=== PATIENT | female | born 1965 | race Caucasian/White ===

== ENCOUNTER 2020-05-06 15:29 | Outpatient (CLI) | payer BC, SELFPAY ==
--- NOTE | 2020-05-06 15:41 | US_ITS ---
WS: [id number] ULTRASOUND RENAL TECHNIQUE: Ultrasound examination of both kidneys. CLINICAL INFORMATION: RENAL FAILURE COMPARISON: None. FINDINGS: RIGHT: Right kidney is normal in size and appearance. Echogenicity: Normal. Cortical thickness: 1.3 cm; Normal. Hydronephrosis: None. Perinephric fluid: None. Right kidney measures: 9.3 cm x 5.3 cm x 5.3 cm. LEFT: Left kidney is normal in size and appearance. Echogenicity: Normal. Cortical thickness: 1.4 cm; Normal. Hydronephrosis: None. Perinephric fluid: None. Left kidney measures: 9.6 cm x 6.5 cm x 6.1 cm. Normal visualized aorta. Bladder contracted US/US renal BI* [id number] IMPRESSION: Normal renal ultrasound
== END 2020-05-06 15:30 | disposition home or self-care (01) ==
LOC: US 15:30
PROVIDERS: PCP Nurse Practitioner Family; Visit Provider Nurse Practitioner Family
DX: N17.9 Acute kidney failure, unspecified (principal)
CPT/HCPCS: 76770

== ENCOUNTER 2020-10-13 13:39 | Outpatient (CLI) | payer BC, SELFPAY ==
--- NOTE | 2020-10-13 13:44 | MR_ITS ---
WS: [id number] MRI BRAIN WITH HIGH-RESOLUTION IMAGING THROUGH THE INTERNAL AUDITORY CANALS WITHOUT AND WITH CONTRAST HISTORY: DIZZINESS AND GIDDINESS COMPARISON: None available. TECHNIQUE: Multiplanar, multisequence imaging is performed through the brain. Additional 3 mm imaging performed in multiple planes through the internal auditory canal. Postcontrast imaging with 12 ml's of MultiHance. No acute intracranial hemorrhage, midline shift, edema or mass effect. Mild atrophy and very mild chronic microvascular ischemic changes in a periventricular distribution. No prior infarcts. No mass at the cerebellopontine angle. Ventricles and extra-axial spaces are normal. No inferior displacement of cerebellar tonsils. Clivus and pituitary gland are normal. Internal and external auditory canals: Unremarkable. Cranial nerves VII and VIII complexes: Unremarkable. No enhancement or mass. Cerebellopontine angles: Normal. Paranasal sinuses: Normal. Mastoid air cells: Normal. Calvarium and scalp: Normal. Visualized [place] and dural venous sinuses demonstrate no abnormality. MR/MR iac's wo/w con* [id number] IMPRESSION: 1. Normal MRI IACs. 2. No mass or infarct. 3. Very mild chronic microvascular ischemic disease.
[2020-10-13] MEDS: gadobenate dimeglumine 20 mL vial IV (14:59)
== END 2020-10-13 13:40 | disposition home or self-care (01) ==
PROVIDERS: PCP Nurse Practitioner Family; Visit Provider Specialist
DX: R42 Dizziness and giddiness (principal); I67.82 Cerebral ischemia
CPT/HCPCS: 70553; A9577

== ENCOUNTER 2021-07-20 10:35 | Outpatient (CLI) | payer BC, SELFPAY ==
--- NOTE | 2021-07-20 10:41 | MM_ITS ---
WS: [id number] BILATERAL SCREENING DIGITAL MAMMOGRAM WITH CAD HISTORY: SCREENING COMPARISON: 10/06/2018 and 09/15/2017 Bilateral CC and MLO views submitted. Computer aided detection analyzed. Breast composition: The breasts are heterogeneously dense, which may obscure small masses. No suspici ous masses, microcalcifications or architectural distortion. Benign calcifications in each breast. MM/[place] [id number] IMPRESSION: BI-RADS: 2-Benign FOLLOW UP: 1 Year Follow-up
== END 2021-07-20 10:36 | disposition home or self-care (01) ==
LOC: RADSHAW 10:39
PROVIDERS: PCP Family Medicine; Visit Provider Family Medicine
DX: Z12.31 Encounter for screening mammogram for malignant neoplasm of breast (principal)
CPT/HCPCS: 77067

== ENCOUNTER 2022-10-12 14:46 | Outpatient (CLI) | payer BC, SELFPAY ==
--- NOTE | 2022-10-12 14:58 | MM_ITS ---
WS: [id number] BILATERAL 3D TOMOSYNTHESIS DIGITAL SCREENING MAMMOGRAPHY WITH CAD CLINICAL INFORMATION: SCREENING HISTORY: Screening mammogram. No current complaints. COMPARISON: July 20, 2021 TECHNIQUE: Bilateral CC and MLO views. FINDINGS: The breasts are composed of heterogeneous fibroglandular density tissue, which can limit the detectio n of small underlying mass lesions. No suspicious mass, asymmetry, calcifications, or architectural d istortion. No evidence of malignancy. Punctate and lucent centered calcifications. Dystrophic calcifi cations. MM/[place] [id number] IMPRESSION: BI-RADS: 2-Benign FOLLOW UP: 1 Year Follow-up Recommend return to annual screening mammography.
== END 2022-10-12 14:47 | disposition home or self-care (01) ==
LOC: RAD 14:49
PROVIDERS: PCP Family Medicine; Visit Provider Family Medicine
DX: Z12.31 Encounter for screening mammogram for malignant neoplasm of breast (principal)
CPT/HCPCS: 77063; 77067

== ENCOUNTER 2023-03-04 08:22 | Outpatient (CLI) | payer BC, SELFPAY ==
--- NOTE | 2023-03-04 08:50 | XR_ITS ---
WS: [id number] Thoracic spine, 3 views, 03/04/2023 Clinical Data: Thoracic back pain Comparison: None. Findings: No compression fractures are seen. The disc heights are normal. There is minimal osteoarthritis of the mid and lower thoracic vertebral bodies. There is elevation of the left diaphragm with the the colon in a posterior position, probably a foramen of Bochdalek herni a. Impression: 1. Mild osteoarthritis of the thoracic spine. 2. Probable foramen of [place]chdalek hernia.
--- NOTE | 2023-03-04 08:50 | XR_ITS ---
WS: [id number] Lumbar spine, 3 views, 03/04/2023 Clinical Data: Lumbar radiculopathy Comparison: None. Findings: No compression fractures or subluxation is seen. No disc space narrowing is seen. The transverse proc esses and SI joints are normal. There is a slight levoscoliosis. There is a probable herniation of the left posterior diaphragm, fora men of [place]dalek hernia containing colon. Impression: 1. Minimal levoscoliosis. 2. Probable elevation of the posterior left diaphragm from a foramen of Bochdalek hernia.
== END 2023-03-04 08:23 | disposition home or self-care (01) ==
PROVIDERS: PCP Family Medicine; Visit Provider Family Medicine
DX: M54.14 Radiculopathy, thoracic region (principal); M54.16 Radiculopathy, lumbar region; M47.814 Spondylosis without myelopathy or radiculopathy, thoracic region; M41.86 Other forms of scoliosis, lumbar region
CPT/HCPCS: 72072; 72100

== ENCOUNTER 2023-04-08 08:06 | Outpatient (CLI) | payer BC, SELFPAY ==
--- NOTE | 2023-04-08 08:00 | CT_ITS ---
WS: [id number] CT CHEST AND ABDOMEN WITH CONTRAST HISTORY: Foramen of [place]chdalek hernia/elevated left hemidiaphragm TECHNIQUE: Axial imaging is performed through the chest and abdomen with IV and oral contrast.. Sagit erna and coronal reformats. All CT scans at [facility] [place] use at least one of these dose optimiza tion techniques: automated exposure control; mA and/or kV adjustment per patient size (includes targe jahaira exams where dose is matched to clinical indication); or iterative reconstruction. CONTRAST: Omnipaque 350; 100 mL IV. DLP: 335.08 mGy.cm COMPARISON: None available. Chest CT: No pulmonary mass or nodule. There is atelectasis at the LEFT lung base. Compressive atelectasis due to the large hernia. Heart is normal size. There is mild displacement of the heart due to the intrathoracic stomach. No ad enopathy. Mild atherosclerosis aorta. LEFT vertebral artery [place] is directly from the aorta. Entire stomach is intrathoracic. Stomach enters the thoracic through mid to anterior diaphragmatic de fect. Portion of the stomach and colon are present in the thorax. Abdomen CT: Mild hepatic steatosis. Normal size liver and spleen. Negative gallbladder and adrenal glands. Negati ve pancreas. No renal mass or obstruction. Mild atherosclerosis aorta. No ascites or adenopathy. No small bowel obstruction. Stomach is intrathoracic. There is a large hernia containing intrathoraci c stomach and portions of the colon. Hernia centered more towards the mid to anterior diaphragmatic s urface. IMPRESSION: 1. Large mid to anterior LEFT diaphragmatic defect with herniation of stomach and colon into the lowe r thorax. No obstruction. No ischemic changes. 2. Mild hepatic steatosis. 3. No adenopathy or ascites.
[2023-04-08] MEDS: iohexol 350 mg/mL 500 mL Btl (per mL) IV (08:49)
== END 2023-04-08 08:07 | disposition home or self-care (01) ==
PROVIDERS: PCP Family Medicine; Visit Provider Family Medicine
DX: Q79.0 Congenital diaphragmatic hernia (principal); R07.89 Other chest pain; K76.0 Fatty (change of) liver, not elsewhere classified
CPT/HCPCS: 71260; 74160; Q9967

== ENCOUNTER 2023-08-15 07:48 | Outpatient (CLI) | payer BC, SELFPAY ==
[2023-08-18 21:14] LABS: Cotinine Serum/Plasma <2 ng/mL; Nicotine Serum/Plasma <2 ng/mL
== END 2023-08-15 07:49 | disposition home or self-care (01) ==
LOC: LAB 07:50
PROVIDERS: PCP Family Medicine; Visit Provider Family Medicine
DX: Z01.818 Encounter for other preprocedural examination (principal)
CPT/HCPCS: 36415; 80323

== ENCOUNTER → 2024-03-30 10:27 | Outpatient (BNVA) | payer BC, SELFPAY | PROVIDERS: PCP Family Medicine; Visit Provider Family Medicine | DX: R63.4 Abnormal weight loss (principal); E53.8 Deficiency of other specified B group vitamins; E03.9 Hypothyroidism, unspecified; Z51.81 Encounter for therapeutic drug level monitoring; E55.9 Vitamin D deficiency, unspecified | CPT/HCPCS: 80053; 82306; 82607; 83550; 83735; 84439; 84443; 85025 ==

== ENCOUNTER 2024-04-02 15:33 | Emergency (ER) | payer BC, SELFPAY ==
[2024-04-02] VITALS (12 sets, daily range): BP systolic 93–139; BP diastolic 52–78; PULSE 62–73; RESP 10–23; TEMP 36.7; O2SAT 97–100; BMI 15.0
--- NOTE | 2024-04-02 16:03 | ECG_ITS ---
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 Measurements Intervals [place] Rate: 65 P: 56 IA: 145 QRS: 60 QRSD: 92 T: 68 QT: 405 QTc: 422 Interpretive Statements SINUS RHYTHM LOW QRS VOLTAGE IN PRECORDIAL LEADS [QRS DEFLECTION < 1.0 mV IN CHEST LEADS] NONSPECIFIC ST & T-WAVE ABNORMALITY No previous ECG available for comparison Electronically Signed On 04-03-2024 7:57:48 CDT by Shankar Reese M.D. [email or web address]
[2024-04-02 16:44] LABS: Basophils % 1.2 %; Hematocrit 34.1 % (36-47); Lymphocytes # 0.8 10^3/uL (0.8-4.8); Lymphocytes % 22.5 %; Mean Corpuscular HGB Conc 31.1 g/dL (30-55); Mean Corpuscular Hemoglobin 31.9 pg (27-33); Mean Corpuscular Volume 102.7 fl (85-98); Mean Platelet Volume 9.8 fL (7.4-10.4); Monocytes # 0.3 10^3/uL (0.2-0.9); Monocytes % 8.7 %; Neutrophils # 2.25 10^3/uL (1.8-7.7); Neutrophils % 67.3 %; Nucleated Red Blood Cells % 0 %; Platelet Count 325 10^3/cmm (157-399); Red Blood Count 3.32 10^6/uL (3.85-5.65); Red Cell Distribution Width 14.6 % (12.1-15.1); White Blood Count 3.34 10^3/uL (3.29-11.43)
[2024-04-02 17:00] LABS: Alanine Aminotransferase 10 U/L (0-33); Albumin Level 3.4 g/dL (3.5-5.2); Alkaline Phosphatase 69 U/L (35-105); Anion Gap 17.6 (5-19); Aspartate Amino Transferase 19 U/L (0-32); Blood Urea Nitrogen 7 mg/dL (6-20); Calcium 8.6 mg/dL (8.5-10.5); Carbon Dioxide 23 mmol/L (22-29); Chloride 98 mmol/L (98-107); Creatinine Clr Calc Pharmacy 67.4713; Globulin 2.7 g/dL (1.3-4.6); Glomerular Filtration Rate 103.4 mL/min (90-130); Glucose 159 mg/dL (65-115); Magnesium 1.4 mg/dL (1.7-2.3); Osmolality Calculated 283 mOsm/kg (285-295); Sodium 136 mmol/L (136-145); Total Bilirubin 0.5 mg/dL (0.15-1.2); Total Protein 6.1 g/dL (6.6-8.7)
[2024-04-02 17:10] LABS: Potassium 2.6 mmol/L (3.5-5.1)
--- NOTE | 2024-04-02 17:38 | W.ED.RECABL ---
HPI - Recheck/Abnormal Lab/Rx General: Chief Complaint: Recheck/Abnormal Lab/Rx Stated Complaint: rajeshan called--critically low potassium Time Seen by Provider: 04/02/24 17:30 History of Present Illness: 58-year-old female with a history of hiatal hernia repair surgery and issues with swallowing over the last several months who presents emergency room with low potassium. She has had a large deal of weight loss. She has been being followed by surgeons at [facility]. She had a recent ex lap. She has had multiple EGDs for the swallowing problems. Her primary checked her labs today and her potassium was low. It is 2.6 today. There is 2.6 on 913 months checked previously. She has had some generalized weakness. No chest pain. No palpitations. No altered mental status. No focal motor deficits. No focal abdominal pain at this time. We discussed that we are going to replace her potassium today and she will continue her workup and follow-up with her primary and her surgeon. Related Data Home Medications Medication Instructions Recorded Confirmed azelastine 137 mcg (0.1 %) nasal 2 spray intranasal BID 03/09/22 11/19/23 spray cholecalciferol (vitamin D3) 50 50 mcg PO DAILY 03/09/22 11/19/23 mcg (2,000 unit) capsule levocetirizine 5 mg tablet 5 mg PO DAILY 03/09/22 11/19/23 meclizine 25 mg tablet 25 mg PO DAILY PRN 07/29/23 03/30/24 phenylephrine HCl 10 mg tablet 10 mg PO Q6H PRN 07/29/23 03/30/24 (Sudafed PE) fremanezumab-vfrm 225 mg/1.5 mL mg SUBCUT 03/30/24 03/30/24 subcutaneous auto-injector (Ajovy) hydrocodone 5 mg-acetaminophen 325 1 tab PO Q8H PRN 03/30/24 03/30/24 mg tablet Previous Rx's Medication Instructions Recorded scopolamine base 1 mg over 3 days 1 patch transdermal Q3D PRN nausea 06/03/22 transdermal patch and vomiting #10 ea cyanocobalamin (vitamin B-12) 1,000 mcg PO DAILY #90 caps 06/17/22 1,000 mcg capsule mupirocin 2 % topical ointment 1 applic topical BID #15 grams 02/21/23 dicyclomine 10 mg capsule 10 mg PO TID PRN Stomach cramps 07/29/23 #30 caps doxylamine succinate 25 mg tablet See Rx Instructions .Route 07/29/23 .COMPLEX PRN insomnia #30 tabs omeprazole 40 mg capsule,delayed 40 mg PO DAILY #30 caps 07/29/23 release citalopram 10 mg tablet 10 mg PO DAILY #30 tabs 03/30/24 metoprolol tartrate 25 mg tablet 25 mg PO DAILY #30 tabs 03/30/24 levothyroxine 75 mcg tablet See Rx Instructions .Route 04/02/24 .COMPLEX #30 tabs potassium chloride 20 mEq 40 meq (2 x 20 mEq) PO DAILY 7 04/02/24 tablet,extended release(part/cryst) days #7 tabs Allergies Allergy/AdvReac Type Severity Reaction Status Date / Time latex Allergy ALGY-Rash Verified 04/02/24 16:09 Review of Systems Narrative: Constitutional symptoms: Negative except as documented in HPI. Skin symptoms: Negative except as documented in HPI. Eye symptoms: Negative except as documented in HPI. ENMT symptoms: Negative except as documented in HPI. Respiratory symptoms: Negative except as documented in HPI. Cardiovascular symptoms: Negative except as documented in HPI. Gastrointestinal symptoms: Negative except as documented in HPI. Genitourinary symptoms: Negative except as documented in HPI. Musculoskeletal symptoms: Negative except as documented in HPI. Neurologic symptoms: Negative except as documented in HPI. Psychiatric symptoms: Negative except as documented in HPI. Endocrine symptoms: Negative except as documented in HPI. [facility] ED PFSH: Medical History (Updated 04/02/24 @ 17:43 by Naz Pantoja MD) Congenital hernia of foramen of Bochdalek Hypothyroidism Hypertension Surgical History (Updated 04/02/24 @ 16:53 by Robert Olivas MD) Dilation of esophagus 02/2024 - Dr Borja - Adhesiolysis with release of posterior fundoplication Hx of cataract surgery Diaphragmatic hernia Repair of diaphragmatic hernia (congenital) - 08/2023 - Jonh History of fracture of nose As a child History of dilation and curettage 1990 after miscarriage Hx of section 1992 Family History Father Cancer Colon cancer - diagnosed at age 64 Grandfather Cancer of melanoma Social History Smoking and tobacco/nicotine status: never used tobacco/nicotine Alcohol intake: never Physical Exam Narrative: EXAM NARRATIVE: General: Alert, no acute distress. Patient does appear very thin slightly cachectic. Skin: Warm, dry. Head: Normocephalic, atraumatic. Neck: Supple, trachea midline. Eye: Extraocular movements are intact. Ears, nose, mouth and throat: mucosa moist. Cardiovascular: Regular, Normal peripheral perfusion. Respiratory: Lungs are clear to auscultation, respirations are non-labored, breath sounds are equal, Symmetrical chest wall expansion. Gastrointestinal: Soft, Nontender, Non distended Musculoskeletal: Normal ROM, no deformity. Neurological: Alert and oriented, No focal neurological deficit observed. Psychiatric: Cooperative, appropriate mood & affect. Course Vital Signs: Vital signs: Vital Signs Temperature 98.1 F 04/02/24 15:58 Pulse Rate 73 04/02/24 15:58 Blood Pressure 112/66 04/02/24 15:58 Pulse Oximetry 100 04/02/24 15:58 Oxygen Delivery Me thod Room Air 04/02/24 15:58 MDM - Recheck/Abnormal Lab/Rx Medical Decision Making Medical decision making: Differential diagnosis including but not limited to and based on the above HPI, review of systems and physical exam: Low potassium seen previously. Repeat labs and a magnesium today. Orders placed to evaluate differential diagnosis based on the above differential, HPI and physical exam EKG: Time 1218. Rate 84. PVCs. Normal sinus rhythm, No ST-T changes, normal MS & QRS intervals, This was reviewed and interpreted by myself the ER physician Lab Review: Laboratory results were reviewed and interpreted by myself the emergency room physician. White count 3.3. Hemoglobin 10.6. BUN and creatinine are 7 and 0.6. No renal failure. She does have a potassium of 2.6 and a magnesium of 1.4 which are significantly low and we are replacing. I reviewed the patient's medical record. Assessment and plan: Hypokalemia Hypomagnesemia ? 40 mill equivalents IV potassium and 40 mill equivalents p.o. potassium. 2 g IV magnesium. - Discharged home - Discussed plan with patient. Answered any questions. - Evaluation and treatment of this problem were appropriate in the emergency setting. Lab Data 04/02/24 16:32 04/02/24 16:32 Laboratory Results WBC 3.34 10^3/uL (3.29-11.43) 04/02/24 16: RBC 3.32 10^6/uL (3.85-5.65) L 04/02/24 16:32 Hgb 10.60 g/dL (11.27-16.99) L 04/02/24 16: Hct 34.1 % (36-47) L 04/02/24 16: MCV 102.7 fl (85-98) H 04/02/24 16: MCH 31.9 pg (27-33) 04/02/24 16: MCHC 31.1 g/dL (30-55) 04/02/24 16: RDW 14.6 % (12.1-15.1) 04/02/24 16: Plt Count 325 10^3/cmm (157-399) 04/02/24: MPV 9.8 fL (7.4-10.4) 04/02/24 16: Neut % (Auto) 67.3 % 04/02/24 16: Lymph % (Auto) 22.5 % 04/02/24 16: [place] % (Auto) 8.7 % 04/02/24: Eos % (Auto) 0.0 % 04/02/24: Baso % (Auto) 1.2 % 04/02/24: Neut # (Auto) 2.25 10^3/uL (1.8-7.7) 04/02/24: Lymph # (Auto) 0.8 10^3/uL (0.8-4.8) 04/02/24 16: [place] # (Auto) 0.3 10^3/uL (0.2-0.9) 04/02/24: Eos # (Auto) 0.0 10^3/uL (0.0-0.8) 04/02/24: Baso # (Auto) 0.0 10^3/uL (0.0-0.1) 04/02/24: Nucleated RBC % (auto) 0 % 04/02/24: Nucleated RBCs # 0.0 /100WBC 04/02/24 16:32 Sodium 136 mmol/L (136-145) 04/02/24 16:32 Potassium 2.6 mmol/L (3.5-5.1) L* 04/02/24 16:32 Chloride 98 mmol/L (98-107) 04/02/24 16:32 Carbon Dioxide 23 mmol/L (22-29) 04/02/24 16:32 Anion Gap 17.6 (5-19) 04/02/24 16:32 BUN 7 mg/dL (6-20) 04/02/24 16:32 Creatinine 0.6 mg/dL (0.5-0.9) 04/02/24 16:32 GFR Calculation 103.4 mL/min (90-130) 04/02/24 16:32 Glucose 159 mg/dL (65-115) H 04/02/24 16:32 Calculated Osmolality 283 mOsm/kg (285-295) L 04/02/24 16:32 Calcium 8.6 mg/dL (8.5-10.5) 04/02/24 16:32 Magnesium 1.4 mg/dL (1.7-2.3) L 04/02/24 16:32 Total Bilirubin 0.5 mg/dL (0.15-1.2) 04/02/24 16:32 AST 19 U/L (0-32) 04/02/24 16:32 ALT 10 U/L (0-33) 04/02/24 16:32 Alkaline Phosphatase 69 U/L (35-105) 04/02/24 16:32 Total Protein 6.1 g/dL (6.6-8.7) L 04/02/24 16:32 Albumin 3.4 g/dL (3.5-5.2) L 04/02/24 16:32 Globulin 2.7 g/dL (1.3-4.6) 04/02/24 16:32 No radiology studies performed this visit Discharge Plan Discharge Patient Disposition: Home Clinical Impression: Hypokalemia, Hypomagnesemia Condition: Stable Prescriptions: New potassium chloride 20 mEq tablet,ER particles/crystals 40 meq PO DAILY 7 Days Qty: 7 0RF No Action azelastine 137 mcg (0.1 %) aerosol,spray 2 spray intranasal BID Rx Instructions: administer into each nostril cholecalciferol (vitamin D3) 50 mcg (2,000 unit) capsule 50 mcg PO DAILY levocetirizine 5 mg tablet 5 mg PO DAILY mupirocin 2 % ointment 1 applic topical BID Qty: 15 2RF meclizine 25 mg tablet 25 mg PO DAILY PRN phenylephrine HCl [Sudafed PE] 10 mg tablet 10 mg PO Q6H PRN doxylamine succinate 25 mg tablet See Rx Instructions .Route .COMPLEX PRN (Reason: insomnia) Qty: 30 6RF Rx Instructions: Take 1 tab by mouth each evening PRN dicyclomine 10 mg capsule 10 mg PO TID PRN (Reason: Stomach cramps) Qty: 30 3RF omeprazole 40 mg capsule,delayed release(DR/EC) 40 mg PO DAILY Qty: 30 3RF hydrocodone-acetaminophen 5-325 mg tablet 1 tab PO Q8H PRN Ajovy Autoinjector 225 mg/1.5 mL auto-injector SUBCUT metoprolol tartrate 25 mg tablet 25 mg PO DAILY Qty: 30 6RF citalopram 10 mg tablet 10 mg PO DAILY Qty: 30 6RF levothyroxine 75 mcg tablet See Rx Instructions .ROUTE .COMPLEX Qty: 30 2RF Dose Instruction: TAKE 1 TABLET BY MOUTH EVERY DAY Rx Instructions: TAKE 1 TABLET BY MOUTH EVERY DAY scopolamine base 1 mg over 3 days patch 3 day 1 patch transdermal Q3D PRN (Reason: nausea and vomiting) Qty: 10 6RF cyanocobalamin (vitamin B-12) 1,000 mcg capsule 1,000 mcg PO DAILY Qty: 90 3RF Discharge Orders: Discharge ED (Routine); Ordered 04/02/24 Ordered By: Naz Pantoja Referrals: Robert Olivas MD [Primary Care Provider] - Discharge Diet: Usual diet Discharge Activity: Increase activity as tolerated Patient Instructions: Hypokalemia (ED) Activity Restrictions/Additional Instructions: Thank you for choosing [facility] for your healthcare needs today. Please realize this is an emergency room and that we are providing you with a medical screening exam and this may not be complete and all inclusive of all the testing and or work up that you may need to determine your ailment or severity of your illness. You have been screened and evaluated and felt safe for discharge. Health conditions do change or evolve sometimes and as such it is important that you follow up with your Primary Doctor to be re checked, 3-5 days is a general good time frame for follow up. You are always welcome to return to the ED for re assessment if your symptoms are worsening or you have new concerns Coding Level of Care Code ED Human Resources Manager for Claudia Borden
[2024-04-02] MEDS: potassium chloride premix 100 ML 25 MEQ IV (18:21)
[2024-04-02] MEDS: magnesium sulfate premix 2 GM/50 ML PIGGYBACK IV (18:41)
[2024-04-03] VITALS: BP 128/64; PULSE 64; RESP 13; O2SAT 100
[2024-04-03 00:05] VITALS: BP 124/64; PULSE 66; RESP 17
[2024-04-03 00:09] VITALS: BP 128/64; PULSE 62; O2SAT 100
== END 2024-04-03 00:13 | disposition home or self-care (01) ==
PROVIDERS: Emergency Provider Emergency Medicine; PCP Family Medicine
DX: E87.6 Hypokalemia (principal); E83.42 Hypomagnesemia; I10 Essential (primary) hypertension
CPT/HCPCS: 36415; 80053; 83735; 85025; 93005; 96365; 96366; 96367; 99284; J3475; J3480

== ENCOUNTER → 2024-05-11 12:18 | Outpatient (BNVA) | payer BC, SELFPAY | PROVIDERS: PCP Family Medicine; Visit Provider Family Medicine | DX: Z51.81 Encounter for therapeutic drug level monitoring (principal); E83.42 Hypomagnesemia; E53.8 Deficiency of other specified B group vitamins; E55.9 Vitamin D deficiency, unspecified; R60.0 Localized edema | CPT/HCPCS: 85025 ==

== ENCOUNTER → 2024-05-14 08:36 | Outpatient (BNVA) | payer BC, SELFPAY | PROVIDERS: PCP Family Medicine; Visit Provider Family Medicine | DX: Z51.81 Encounter for therapeutic drug level monitoring (principal); R60.0 Localized edema; E53.8 Deficiency of other specified B group vitamins; E83.42 Hypomagnesemia; E55.9 Vitamin D deficiency, unspecified | CPT/HCPCS: 80053; 82306; 82607; 83735; 83880; 85025 ==

== ENCOUNTER → 2024-06-05 07:48 | Outpatient (BNVA) | payer BC, SELFPAY | PROVIDERS: PCP Family Medicine; Visit Provider Family Medicine | DX: R63.4 Abnormal weight loss (principal) | CPT/HCPCS: 83540 ==

== ENCOUNTER 2025-03-10 12:30 | Emergency (ER) | payer BC, SELFPAY ==
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
--- OUTSIDE RECORDS SUMMARY | 2025-03-10 12:35 | XMS_ITS | Encounter Summary ---
Author Organization [facility] Address [address] [place] [address] Care Team Providers Care Veterinary Practice Manager Name Role Phone Unavailable Primary Care Provider Ryan e Encounter Details Date Type Department Care Team (Latest Contact Info) Description 03/27/2003 Outpatient Historical [facility] Jani Howard Jr., MD [address] [place] [address] ADJUSTMENT REACTION NOS (Primary Dx); HYPERLIPIDEMIA NEC/NOS Social History Tobacco Use Types Packs/Day Years Used Date Smoking Tobacco: Never Assessed Comments Unknown Sex and Gender Information Value Date Recorded Sex Assigned at Not on file 

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
--- OUTSIDE RECORDS SUMMARY | 2025-03-10 12:35 | XMS_ITS | Encounter Summary ---
Author Organization [facility] Address [address] [place] [address] Phone Care Team Providers Care Grades 7 And 8 Visiting Teacher Name Role Phone Unavailable Primary Care Provider Unavailabl e Encounter Details Date Type Department Care Team (Late st Contact Info) Description 06/06/2020 Orders Only [facility] [address] [place] [address] Gerardo Portillo MD [address] [place] [address] Acute kidney failure, not otherwise specified (HCC) Social History Tobacco Use Types Packs/Day Years Used Date Smoking Tobacco: Never Assessed Comments Unknown Sex and Gender Information Value Date Recorded Sex Assigned at Not on file Legal Sex Female 11:21 AM EDT Gender Identity Not on file Sexual Orientation Not on file documented as of this encounter Plan of Treatment Not on file documented as of this encounter Visit Diagnoses Diagnosis Acute kidney failure, not otherwise specified (HCC) documented in this encounter
--- OUTSIDE RECORDS SUMMARY | 2025-03-10 12:35 | XMS_ITS | Encounter Summary ---
Author Organization 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
--- OUTSIDE RECORDS SUMMARY | 2025-03-10 12:35 | XMS_ITS | Clinical Summary ---
Author Organization [facility] Address [address] [address] Care Team Providers Care Marketing Production Manager Name Role Phone Unavailable Primary Care Provider Unavailabl e Social History Tobacco Use Types Packs/Day Years Used Date Smoking Tobacco: Never Assessed Comments Unknown Sex and Gender Information Value Date Recorded Sex Assigned at Not on file Legal Sex Female 11:21 AM EDT Gender Identity Not on file Sexual Orientation Not on file Plan of Treatment Health Maintenance Due Date Last Done Comments Breast Cancer Screening 1965 Hepatitis B Vaccine (1 of 3 - 19+ 3-dose series) 11/28 Colorectal Cancer Screening: Annual FOBT 11/28/2016 Colorectal Cancer Screening: Colonoscopy 11/28/2016 Colorectal Cancer Screening: Sigmoidoscopy 11/28/2016 Pneumococcal Vaccine: 50+ Years (1 of 1 - PCV) 018 Influenza Vaccine (#1) 2025 Insurance [facility]
--- OUTSIDE RECORDS SUMMARY | 2025-03-10 12:35 | XMS_ITS | Encounter Summary ---
Author Organization [facility] Address [address] [place] [address] Care Team Providers Care Divorce Lawyer Name Role Phone Unavailable Primary Care Provider Ryan e Encounter Details Date Type Department Care Team (Latest Contact Info) Description 01/04/2003 Outpatient Historical HIS [facility] Jani Howard Jr., MD [address] [place] [address] ADJUSTMENT REACTION NOS (Primary Dx); BEREAVEMENT, UNCOMPLICAT Social History Tobacco Use Types Packs/Day Years Used Date Smoking Tobacco: Never Assessed Comments Unknown Sex and Gender Information Value Date Recorded Sex Assigned at Not on file 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
--- OUTSIDE RECORDS SUMMARY | 2025-03-10 12:35 | XMS_ITS | Patient Health Record ---
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 Name Role Phone Robert Olivas MD Primary Care Provider Unavaila chantelle Willis MD, Luis Unavailable [phone] Kathy Tabor Unavailable [phone] Allergies Allergen (clinical drug ingredient) Drug/Non Drug Allergy documented on EMR Reaction Allergy Type Onset Date Status Latex latex (uncoded) Unknown Allergy Acti ve Reason For Referral Reason Evaluation for possi ble treatment / continuation of care (clinic closing due to provider's senior care) Diagnosis 1 Pain in thoracic spi ne (M54.6) Referral Organization [facility] Referring Provider First Name Luis Referring Provider Last Name Lazaro Referring Provider Speciality Pain Manag ement Referred Provider Dionisio Villagran Referred Provider Specialty Pain Managem ent General Notes Stefany Alejo 03:39:18 PM >FAXED TODAY. Referral Priority Routine Referral Appointment Date 12/28/2024 Medications Medication SIG (Take, Route, Frequency, Duration) Notes Start Date End Date Status Metoprolol Tartrate 25 mg 1 tab(s) orally 2 times a day Active meclizine 25 mg 1 tab(s) orally 3 times a day, as needed Active acetaminophen-hydrocodo ne 325 mg-5 mg 1-2 tabs orally Q4-6H prn pain (max 6/day; hold within 4H of planned sleep); Duration: 28 days Do not fill prior to 01/03/25. ICD-10: G89.29 2024 Active spironolactone 25 mg 1 tab(s) orally onc e a day Active acetaminophen-hydrocodo ne 325 mg-5 mg 1-2 tabs orally Q4-6H prn pain (max 6/day; hold within 4H of planned sleep); Duration: 28 days Do not fill prior to 12/06/24. ICD-10: G89.29 2024 Active omeprazole 40 mg as directed orally once a day Active ferrous sulfate 325 mg 1 tab(s) orally o nce a day Active citalopram 10 mg 1 tab(s) orally once a day; Duration: 30 day(s) Active magnesium oxide 400 mg 1 tab(s) orally o nce a day Active levothyroxine 88 mcg (0.088 mg) 1 tab(s) orally once a day Active Vitamin D2 50 mcg 1 cap(s) orally once a day Active acetaminophen-hydrocodo ne 325 mg-5 mg 1-2 tabs orally Q4-6H prn pain (max 6/day; hold within 4H of planned sleep); Duration: 28 days Do not fill prior to 01/31/25. ICD-10: G89.29 2024 Active acetaminophen 325 mg 1-2 tabs orally prn pain Active Sudafed 30 mg 1 tab(s) orally ever y 6 hours Active Ajovy Autoinjector vfrm 225 mg/1.5 mL as directed subcutaneously once a month Active Xyzal 5 mg 1 tab(s) orally once a day (in the evening) Active Social History Tobacco Use: Social History Observation Description Date Details (start date - stop date) Former Smoker NA - NA Tobacco use: Question Answer Notes : former smoker When did you stop smoking? 08/06 23 AUDIT-C (Standard) Question Answer Notes Did you have a drink containing alcohol in the p ast year? No Points 0 Interpretation Negative Problems Problem Type SNOMED Code ICD Code Onset Dates Problem Status W/U Status Risk Notes Problem High risk drug monitoring status (269152312) halfway (current) use of opiate analgesic (Z79.891) Active confirmed Problem Sleep disorder (52909189) Other sleep disorders (G47.8) Active confirmed Problem Chronic pain (88728102) Other chronic pain (G89.29) Active confirmed Problem Essential hypertension (69284614) Essential (primary) hypertension (I10) Active confirmed Problem Thoracic radiculopathy (04906828) Radiculopathy, thoracic region (M54.14) Active confirmed Problem Pain in thoracic spine (885845473) Pain in thoracic spine (M54.6) Active confirmed Problem Long-term current use of drug therapy (555093735) Other mcc (current) drug therapy (Z79.899) Active confirmed Problem Muscle pain (48948873) Myalgia, other site (M79.18) Active confirmed Vital Signs Temperature 97.6 degrees Fahrenheit 2024 Oximetry 98 % 2024 Blood pressure diastolic 83 mm Hg 2024 Height 65 in 2024 Blood pressure systolic 125 mm Hg 2024 Weight 131.4 lbs 2024 BMI 21.86 kg/m2 2024 Encounters Encounter Location Date Provider Diagnosis [facility] [address] [place], [place] [id number] 04/12/2024 Kathy Abbott Pain in thoracic spine M54.6 ; Other chronic pain G89.29 ; Other sleep disorders G47.8 and buttermaker (current) use of opiate analgesic Z79.891 [facility] [address] [place], [place] [id number] 06/21/2024 Luis Willis Pain in thoracic spine M54.6 ; Other chronic pain G89.29 and Other sleep disorders G47.8 [facility] [address] [place], [place] [id number] 08/09/2024 Luis Reynaldoosiel Pain in thoracic spine M54.6 ; Other chronic pain G89.29 and Other sleep disorders G47.8 [facility] [address] [place], [place] [id number] 10/04/2024 Luis Reynaldoosiel Pain in thoracic spine M54.6 ; Other chronic pain G89.29 ; Essential (primary) hypertension I10 and Other sleep disorders G47.8 [facility] [address] [place], [place] [id number] 2024 Luis Willis Pain in thoracic spine M54.6 ; Other chronic pain G89.29 and Other sleep disorders G47.8 [facility] [address] [place], [place] [id number] 04/02/2024 Luis Willis Assessments Encounter Date Diagnosis (ICD Code) Assessment Notes Treatment Notes Treatment Clinical Notes Section Notes 2024 Other chronic pain (ICD-10 - G89.29) Patient reports that taking her pain medication allows her to continue working. Plan to continue oral opioid medication at today's visit. 2024 Pain in thoracic spine (ICD-10 - M54.6) Chronic axial thoracic spine pain. Patient requests a referral to Dr. Villagran for continuation of care. 06/21/2024 Other chronic pain (ICD-10 - G89.29) Patient reports that she is doing more physical activities because she is taking care of her mother and most days could use more pain medication. Plan to continue oral opioid medication management with quantity titration. 06/21/2024 Pain in thoracic spine (ICD-10 - M54.6) Chronic axial thoracic spine pain. 04/12/2024 Pain in thoracic spine (ICD-10 - M54.6) Chronic axial thoracic spine pain. 10/04/2024 Other chronic pain (ICD-10 - G89.29) Patient reports that taking her pain medication allows her to continue her stretching and yoga therapy. Plan to continue oral opioid medication management. 10/04/2024 Pain in thoracic spine (ICD-10 - M54.6) Chronic axial thoracic spine pain. 08/09/2024 Pain in thoracic spine (ICD-10 - M54.6) Chronic axial thoracic spine pain. 08/09/2024 Other chronic pain (ICD-10 - G89.29) Patient reports that she is doing more physical activity while taking care of her mother and sitting at her computer for longer stretches for work. She feels that most days would benefit with an extra pain tablet. Plan to continue oral opioid medication management with quantity titration. 10/04/2024 Essential (primary) hypertension (ICD-10 - I10) Education sheet given at today's visit; patient to address with PCP. 04/12/2024 Other sleep disorders (ICD-10 - G47.8) Plan to resrict opioid use in relation to sleep for safety concerns. 04/12/2024 Other chronic pain (ICD-10 - G89.29) Patient reports that taking her pain medication allows her to bounce back following multiple surgeries this year. She plans to return to work on 04/16/24. Plan to continue oral opioid medication management. 06/21/2024 Other sleep disorders (ICD-10 - G47.8) Plan to resrict opioid use in relation to sleep for safety concerns. 2024 Other sleep disorders (ICD-10 - G47.8) Plan to continue to resrict opioid use in relation to sleep for safety concerns. 04/12/2024 buttermaker (current) use of opiate analgesic (ICD-10 - Z79.891) Patient has a total daily MED of 15. This places the [facility] in the [facility] low risk category for total daily opioid usage. 2022 opioid (OUD) risk tool score = 2. This places the patient in the low risk category. 10/04/2024 Other sleep disorders (ICD-10 - G47.8) Plan to resrict opioid use in relation to sleep for safety concerns. 08/09/2024 Other sleep disorders (ICD-10 - G47.8) Plan to resrict opioid use in relation to sleep for safety concerns. 06/21/2024 Other Patient counselled regarding taking more medication than prescribed and verbalized understanding that her care at this facility will be terminated should future violations of her treatment agreement occur. The service was provided by GUIDO Garza, as part of the ongoing care plan established by Luis Willis MD, who was present in the office for direct supervision during the encounter. 08/09/2024 Other The service was provided by GUIDO Garza, as part of the ongoing care plan established by Luis Willis MD, who was present in the office for direct supervision during the encounter. 10/04/2024 Other The service was provided by GUIDO Garza, as part of the ongoing care plan established by Luis Willis MD, who was present in the office for direct supervision during the encounter. 2024 Other The service was provided by GUIDO Garza, as part of the ongoing care plan established by Luis Willis MD, who was present in the office for direct supervision during the encounter. Patient was provided with a letter at today's visit informing patient that this clinic is closing due to Dr. Willis's senior care; see scanned document. Terminal prescriptions were given to the patient along with tapering instructions. 04/12/2024 Other Plan Of Treatment No Information Insurance Providers Payer Name Payer Address Payer Phone Subscriber Number Group Number Insured Name Patient Relationship to Insured Coverage Start Date Coverage End Date [facility] [address] [place] [address] [id number] Jennifer Leon Self - patient is the insured Medical (General) History Medical History History ICD Code Chronic pain Mid back pain Thoracic spondylosis (arthri tis of thoracic spine as per prior radiology report) History of radiculopathy, thoracic regio n Low back pain, history of remote injecti on therapy with no benefit Headaches, history of triptan medication use Congenital hernia of foramen of [place] k Omeprazole medication use Hypothyroidism Hypertension Depression Dizziness / vertigo Nausea and vomiting, history of treatmen t with scopolamine Sleep disorder noted upon pr ior sleep apnea screening (patient has reported that snoring resolved post prior weight loss) Surgical History Surgery Date(Month/Year) Repair of fractured nose, 1977 Dilation and curettage, 1991 section, 1992 Repair of hiatal hernia, per formed at [place], [place] by Dr. Borja, 08/23/23 Espohageal dilation, perform ed at [place], [place] by Dr. Borja, 12/26/23 Cataract surgery, right, performed at [facility] by Dr. Holly, 01/04/24 Cataract surgery, left, performed at [facility] by Dr. Holly, 01/18/24 Laparotomy, abdominal, performed at [place], [place], 01/2024 EGD, performed at [place], [place] , 03/14/24
--- OUTSIDE RECORDS SUMMARY | 2025-03-10 12:35 | XMS_ITS | Clinical Summary ---
Author Organization [facility] Address [address] [place] [address] Care Team Providers Care Clay Carman Name Role Phone Unavailable Primary Care Provider Unavailabl e Allergies No known active allergies Medications hydrALAZINE (APRESOLINE) 10 mg tablet Take 10 mg by mouth 2 times daily. Active metoprolol succinate (TOPROL XL) 100 mg Extended Release 24 hour tablet Take 75 mg by mouth 2 times daily. Active traZODone (DESYREL) 150 mg tablet Take 75 mg by mouth daily at bedtime. Active omeprazole (PriLOSEC) 20 mg Capsule, Delayed Release(E.C.) Take 20 mg by mouth daily. Active cholecalciferol, Vitamin D3, 125 mcg (5,000 unit) Capsule Take 5,000 Units by mouth daily. Active Ca-D3-mag fl-ypsr-rha-elliott-afua r 600 mg calcium- 20 mcg-50 mg Tablet Take by mouth. Active pseudoephedrine HCl (SUDAFED ORAL) Take by mouth. Active meclizine (ANTIVERT) 12.5 mg tablet Take 12.5 mg by mouth every 8 hours as needed. Active azelastine (ASTEPRO) 0.15 % (205.5 mcg) nasal spray Administer in each nostril. Active levocetirizine (XYZAL) 5 mg tablet Take 5 mg by mouth 2 times daily. Active SCOPOLAMINE BASE TRANSDERMAL Apply to skin as directed. Active levothyroxine 88 mcg tablet Take 75 mcg by mouth daily. 02/03/20 22 Active levocetirizine dihydrochloride (LEVOCETIRIZINE ORAL) Take by mouth. 11/27/19 21 Active phenylephrine HCl/acetaminophn (SINUS PE ORAL) Take by mouth. 11/27/19 Active meclizine (ANTIVERT) 12.5 mg tablet Take 12.5 mg by mouth 3 times daily as needed for Dizziness. 11/27/19 Active cholecalciferol, Vitamin D3, 125 mcg (5,000 unit) Capsule Take 5,000 Units by mouth daily. 11/27/19 Active omeprazole (PriLOSEC) 20 mg Capsule, Delayed Release(E.C.) Take 20 mg by mouth daily. 11/27/19 Active atorvastatin (LIPITOR) 40 mg tablet Take 40 mg by mouth daily. 11/27/19 Active coenzyme Q10 200 mg Capsule Take 200 mg by mouth daily. 11/27/19 Active traZODone (DESYREL) 150 mg tablet Take 150 mg by mouth daily at bedtime. 11/27/19 Active azelastine (ASTEPRO) 0.15 % (205.5 mcg) nasal spray Administer in each nostril. 11/27/19 Active calcium/mag/vitamin D2/Zn/min (LESTER-MAG ZINC II ORAL) Take by mouth. 11/27/19 Active hydrALAZINE (APRESOLINE) 10 mg tablet Take 10 mg by mouth 4 times daily. 11/27/19 Active clonazePAM (KlonoPIN) 1 mg tablet Take 1 mg by mouth 2 times daily. 11/27/19 Active metoprolol succinate (TOPROL XL) 100 mg Extended Release 24 hour tablet Take 100 mg by mouth daily. 11/27/19 Active ondansetron (Zofran ODT) 8 mg Tablet, Rapid Dissolve Dissolve 1 tablet on top of tongue then swallow with saliva every 8 hours as needed for nausea or vomiting 20 Tablet 4 10/26/19 24 Active citalopram (CeleXA) 10 mg tablet Take 10 mg by mouth daily. Active HYDROcodone-acetami nophen (NORCO) 5-325 mg tablet Take 1 Tablet by mouth every 6 hours as needed for Pain, Moderate. Active rizatriptan (Maxalt-DIRECTOR BANKING) 10 mg Tablet, Rapid DissolveIndications :Chronic migraine without aura, with intractable migraine, so stated, with status migrainosus One tab at onset of migraine, may repeat in 2 hours; max dose 200 mg in 24 hours 9 Tablet 3 05/22/20 24 Active fremanezumab-vfrm (Ajovy Autoinjector) 225 mg/1.5 mL Auto-Injector Inject 1.5 mL (225 mg) by subcutaneous injection every 30 days. 1.5 mL 5 10/31/19 25 Active Active Problems Problem Noted Date Diagnosed Date Benign hypertension 11/26/2020 Hyperlipidemia 11/26/2020 Encounters Date Type Department Care Team Description 02/19/2025 External Device Data [facility] ABSTRACTION Provider, Abstract 01/30/2025 External Device Data [facility] ABSTRACTION Provider, Abstract 01/29/2025 External Device Data [facility] ABSTRACTION Provider, Abstract 01/01/2025 External Device Data [facility] ABSTRACTION Provider, Abstract from Last 3 Months Social History Tobacco Use Types Packs/Day Years Used Date Smoking Tobacco: Every Day Cigarettes Tobacco Cessation:Ready to Q uit: Not Asked; Counseling Given: Not Answered Comments No Sex and Gender Information Value Date Recorded Sex Assigned at Not on file 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 Gender Identity Not on file Sexual Orientation Not on file Last Filed Vital Signs Vital Sign Reading Time Taken Comments Blood Pressure 106/62 04/04/2024 12:43 PM CDT Pulse 72 04/04/2024 12:43 PM CDT Temperature - - Respiratory Rate 16 01/05/2023 2:41 PM CDT Oxygen Saturation 94% 04/04/2024 12:43 PM CDT Inhaled Oxygen Concentration - - Weight 40.8 kg (90 lb) 04/04/2024 12:43 PM CDT Height 165.1 cm (5' 5 ) 04/04/2024 12:43 PM CDT Body Mass Index 14.98 04/04/2024 12:43 PM CDT Plan of Treatment Health Maintenance Due Date Last Done Comments DTAP/TDAP/TD VACCINES (1 - Tdap) 11/28/1986 HEPATITIS B VACCINES (1 of 3 - 19+ 3-dose series) 11/15 HPV/Cotest (21-29) 11/28/1988 CERVICAL CANCER SCREENING 11/28/1997 HPV/Cotest (30-65) 11/28/1997 PAP SMEAR 11/28/1997 BREAST CANCER SCREENING 2007 COLORECTAL SCREENING 11/28/2012 Colorectal Cancer Screening 11/28/2012 FIT-DNA Q 3 years 11/28/2012 FIT/FOBT Q 1 year 11/28/2012 Flex Sig/CT Colonography Q 5 years 11/28/2012 ZOSTER VACCINE (1 of 2) 11/28/2017 INFLUENZA VACCINE (#1) 2025 Insurance [facility] BLUE ACCESS/TRUE BLUE PPO
--- OUTSIDE RECORDS SUMMARY | 2025-03-10 12:35 | XMS_ITS | Clinical Summary ---
Author Organization [facility] Address [address] [place] [address] Care Team Providers Care Drugless Doctor Name Role Phone Unavailable Primary Care Provider Unavailabl e Allergies No known active allergies Medications levocetirizine dihydrochloride (LEVOCETIRIZINE ORAL) Take by mouth. Activ e hydrALAZINE (APRESOLINE) 10 mg tablet Take 10 mg by mouth 4 times daily. Active metoprolol succinate (TOPROL XL) 100 mg Extended Release 24 hour tablet Take 100 mg by mouth daily. Active atorvastatin (LIPITOR) 40 mg tablet Take 40 mg by mouth daily. Active clonazePAM (KlonoPIN) 1 mg tablet Take 1 mg by mouth 2 times daily. Active traZODone (DESYREL) 150 mg tablet Take 150 mg by mouth daily at bedtime. Active omeprazole (PriLOSEC) 20 mg Capsule, Delayed Release(E.C.) Take 20 mg by mouth daily. Active cholecalciferol, Vitamin D3, 125 mcg (5,000 unit) Capsule Take 5,000 Units by mouth daily. Active calcium/mag/vitamin D2/Zn/min (LESTER-MAG ZINC II ORAL) Take by mouth. A ctive coenzyme Q10 200 mg Capsule Take 200 mg by mouth daily. Active phenylephrine HCl/acetaminophn (SINUS PE ORAL) Take by mouth. Active meclizine (ANTIVERT) 12.5 mg tablet Take 12.5 mg by mouth 3 times daily as needed for Dizziness. Active azelastine (ASTEPRO) 0.15 % (205.5 mcg) nasal spray Administer in each nostril. Active topiramate (Topamax) 25 mg tablet Take 2 Tablets (50 mg) by mouth 2 times daily. One tablet at night for 1stweek; one tablet at morning, one tablet at night for 2nd week; one tablet at morning, two tablet at evening for 3rd week; then two tablet at morning, two tablet at evening. 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
[2025-03-10 12:46] VITALS: PULSE 82; RESP 16; TEMP 36.7; O2SAT 95; BMI 18.6
--- NOTE | 2025-03-10 12:59 | CTR_ITS ---
PROCEDURE INFORMATION: Exam: CT Head Without Contrast Exam date and time: 03/10/2025 2:01 PM Age: 59 years old Clinical indication: Pain; Headache; Vascular; Additional info: HTN with n/v eval hypertensive bleed TECHNIQUE: Imaging protocol: Computed tomography of the head without contrast. Radiation optimization: All CT scans at this facility use at least one of these dose optimization techniques: automated exposure control; mA and/or kV adjustment per patient size (includes targeted exams where dose is matched to clinical indication); or iterative reconstruction. COMPARISON: MR tilley's wo/w con* [id number] 10/13/2020 2:20 PM RADIATION DOSE METRICS: Total DLP (mGy-cm): 1050.38 FINDINGS: Brain: Cvcg-bj-nxmrsdos periventricular white matter hypoattenuation. Diffuse age-appropriate cortical atrophy. No acute intracranial hemorrhage. No acute territorial infarction. Cerebral ventricles: No ventriculomegaly. Paranasal sinuses: Visualized sinuses are unremarkable. No fluid levels. Mastoid air cells: Visualized mastoid air cells are well aerated. Bones: Unremarkable. No acute fracture. Soft tissues: Unremarkable. Vasculature: Atherosclerosis of the cavernous internal carotid arteries. CT/CT head wo con* [id number] IMPRESSION: 1. No acute intracranial abnormality. 2. Sftf-yu-gcjygtmf chronic ischemic small-vessel disease.
--- NOTE | 2025-03-10 13:10 | ECG_ITS ---
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 Measurements Intervals [place] Rate: 77 P: 17 IA: 148 QRS: 48 QRSD: 89 T: 52 QT: 391 QTc: 444 Interpretive Statements SINUS RHYTHM Compared to ECG 04/02/2024 16:03:20 T-wave abnormality no longer present Electronically Signed On 03-10-2025 18:45:21 CDT by Jeremiah Baca M.D. [email or web address]
--- NOTE | 2025-03-10 13:11 | W.ED.GENADLT ---
HPI - General Adult General: Chief complaint: General Medical Stated complaint: high bp Time Seen by Provider: 03/10/25 12:51 History of Present Illness: HPI: Patient with concern of hypertension measured today at home. States that her home blood pressure is measuring in the 180s/110s which was concerning to her. She states that she also had an episode of nausea and emesis on the way into the emergency department. No active chest pain, shortness of breath, fevers, chills. States takes 25 mg metoprolol daily and was previously on metoprolol as high as 200. Uncertain why metoprolol versus other agents given patient does not have listed diagnosis of atrial fibrillation. REVIEW OF SYSTEMS: 10 systems reviewed and otherwise unremarkable except for those noted in HPI. PHYSCIAL EXAM: Triage vital signs reviewed Gen: A&O NAD, elderly HEENT: NCAT, EOMI, not icteric. External ears normal. No rhinorrhea. Moist mucous membranes. Neck: Supple, full range of motion, no observable masses, No meningeal sign. Lungs: No Respiratory distress. CV: RRR, no edema. Abdomen: Soft, nondistended, No rebound tenderness. MSK: No joint swelling, no redness. Skin: No rashes, petechiae, lesions. Normal color per patient. Neuro: Normal Gait, Grossly intact. Psych: Appropriate for situation. PROCEDURES: EKG: Rate: Normal Rhythm: Sinus [place]: Normal variant Intervals: Normal Ischemia: No STEMI criteria Related Data Home Medications ?Medication ?Instructions ?Recorded ?Confirmed cholecalciferol (vitamin D3) 50 50 mcg PO DAILY 03/09/22 03/10/25 mcg (2,000 unit) capsule meclizine 25 mg tablet 25 mg PO DAILY PRN Dizziness 07/29/23 03/10/25 phenylephrine HCl 10 mg tablet 10 mg PO Q6H PRN Congestion 07/29/23 03/10/25 (Sudafed PE) fremanezumab-vfrm 225 mg/1.5 mL 225 mg SUBCUT Q30D 03/30/24 03/10/25 subcutaneous auto-injector (Ajovy) hydrocodone 5 mg-acetaminophen 325 1 tab PO Q8H PRN Pain 03/30/24 03/10/25 mg tablet acetaminophen 500 mg tablet 500 mg PO Q6H PRN Pain 03/10/25 03/10/25 levocetirizine 5 mg tablet (Xyzal) 5 mg PO BID 03/10/25 03/10/25 levothyroxine 75 mcg tablet 75 mcg PO DAILY 03/10/25 03/10/25 omeprazole 40 mg capsule,delayed 40 mg PO DAILY 03/10/25 03/10/25 release trazodone 50 mg tablet 50 mg PO BEDTIME 03/10/25 03/10/25 Previous Rx's ?Medication ?Instructions ?Recorded citalopram 20 mg tablet 20 mg PO DAILY #90 tabs 11/13/24 metoprolol tartrate 25 mg tablet 25 mg PO DAILY #90 tabs 11/13/24 spironolactone 25 mg tablet 25 mg PO DAILY #90 tabs 11/13/24 Allergies Allergy/AdvReac Type Severity Reaction Status Date / Time latex Allergy ALGY-Rash Verified 05/11/24 11:25 [facility] ED PFSH: Medical History (Updated 03/10/25 @ 13:15 by Axel Aponte MD) Congenital hernia of foramen of [place] Hypothyroidism Hypertension Surgical History Dilation of esophagus 02/2024 - Dr Borja - Adhesiolysis with release of posterior fundoplication Hx of cataract surgery Diaphragmatic hernia Repair of diaphragmatic hernia (congenital) - 08/2023 - Jonh History of fracture of nose As a child History of dilation and curettage 1990 after miscarriage Hx of section 1992 Family History Father Cancer Colon cancer - diagnosed at age 64 Grandfather Cancer of melanoma Social History Smoking and tobacco/nicotine status: never used tobacco/nicotine Alcohol intake: never Course Vital Signs: Vital signs: Vital Signs Temperature 98.1 F 03/10/25 12:46 Pulse Rate 89 03/10/25 13:17 Respiratory Rate 16 03/10/25 12:46 Blood Pressure 174/90 03/10/25 14:00 Pulse Oximetry 100 03/10/25 13:30 Oxygen Delivery Me thod Room Air 03/10/25 13:17 MDM - General Adult Medical Decision Making MEDICAL DECISION MAKING: Differential diagnoses considered but not limited to: Hypertension with endorgan damage including hypertensive nephropathy, intracranial hemorrhage, ACS, benign hypertension. Vitals nonactionable. Given history, examination, and pretest risk factors, including negative head imaging, nonactionable labs, feel most consistent with benign hypertension. Patient ordered 25 mg of hydralazine but prior to administration her blood pressure had normalized in the emergency department. Patient otherwise remains well-appearing with nonactionable vital signs, no new symptoms on reassessment, and comfortable appearance in the department. Advised patient follow-up with PCM for chronic medical conditions as well as consideration of increasing blood pressure medication. DISPO: TAYLOR Aponte MD Staff physician, [facility] [place] Department [phone] Lab Data 03/10/25 13:09 03/10/25 13:[address] 03/10/25 12:59 IMPRESSION: 1. No acute intracranial abnormality. 2. [id number] chronic ischemic small-vessel disease. Laboratory Results WBC 7.38 10^3/uL (3.29-11.43) 03/10/25 13:09 RBC 4.96 10^6/uL (3.85-5.65) 03/10/25 13:09 Hgb 12.60 g/dL (11.27-16.99) 03/10/25 13:09 Hct 39.9 % (36-47) 03/10/25 13:09 MCV 80.4 fl (85-98) L 03/10/25 13:09 MCH 25.4 pg (27-33) L 03/10/25 13:09 MCHC 31.6 g/dL (30-55) 03/10/25 13:09 RDW 18.4 % (12.1-15.1) H 03/10/25 13:09 Plt Count 261 10^3/cmm (157-399) 03/10/25 13:09 MPV 9.4 fL (7.4-10.4) 03/10/25 13:09 Neut % (Auto) 79.6 % 03/10/25 13:09 Lymph % (Auto) 11.9 % 03/10/25 13:09 [place] % (Auto) 7.5 % 03/10/25 13:09 Eos % (Auto) 0.0 % 03/10/25 13:09 Baso % (Auto) 0.7 % 03/10/25 13:09 Neut # (Auto) 5.88 10^3/uL (1.8-7.7) 03/10/25 13:09 Lymph # (Auto) 0.9 10^3/uL (0.8-4.8) 03/10/25 13:09 [place] # (Auto) 0.6 10^3/uL (0.2-0.9) 03/10/25 13:09 Eos # (Auto) 0.0 10^3/uL (0.0-0.8) 03/10/25 13:09 Baso # (Auto) 0.1 10^3/uL (0.0-0.1) 03/10/25 13:09 Nucleated RBC % (auto) 0 % 03/10/25 13:09 Nucleated RBCs # 0.0 /100WBC 03/10/25 13:09 Sodium 135 mmol/L (136-145) L 03/10/25 13:09 Potassium 3.5 mmol/L (3.5-5.1) 03/10/25 13:09 Chloride 93 mmol/L (98-107) L 03/10/25 13:09 Carbon Dioxide 22 mmol/L (22-29) 03/10/25 13:09 Anion Gap 23.5 (5-19) H 03/10/25 13:09 BUN 7 mg/dL (6-20) 03/10/25 13:09 Creatinine 0.6 mg/dL (0.5-0.9) 03/10/25 13:09 GFR Calculation 103.0 mL/min (90-130) 03/10/25 13:09 Glucose 115 mg/dL (65-115) 03/10/25 13:09 Calculated Osmolality 279 mOsm/kg (285-295) L 03/10/25 13:09 Calcium 9.4 mg/dL (8.5-10.5) 03/10/25 13:09 Total Bilirubin 0.9 mg/dL (0.15-1.2) 03/10/25 13:09 AST 72 U/L (0-32) H 03/10/25 13:09 ALT 24 U/L (0-33) 03/10/25 13:09 Alkaline Phosphatase 83 U/L (35-105) 03/10/25 13:09 Troponin T Baseline 7 ng/L (0-10) 03/10/25 13:09 Total Protein 8.2 g/dL (6.6-8.7) 03/10/25 13:09 Albumin 4.6 g/dL (3.5-5.2) 03/10/25 13:09 Globulin 3.6 g/dL (1.3-4.6) 03/10/25 13:09 All radiology interpretation(s) finalized by discharge Discharge Plan Discharge Patient Disposition: Home Clinical Impression: Hypertension Qualifiers: Hypertension type: unspecified Qualified Code(s): I10 - Essential (primary) hypertension Condition: Stable Prescriptions: No Action cholecalciferol (vitamin D3) 50 mcg (2,000 unit) capsule 50 mcg PO DAILY meclizine 25 mg tablet 25 mg PO DAILY PRN (Reason: Dizziness) phenylephrine HCl [Sudafed PE] 10 mg tablet 10 mg PO Q6H PRN (Reason: Congestion) hydrocodone-acetaminophen 5-325 mg tablet 1 tab PO Q8H PRN (Reason: Pain) Ajovy Autoinjector 225 mg/1.5 mL auto-injector 225 mg SUBCUT Q30D citalopram 20 mg tablet 20 mg PO DAILY Qty: 90 2RF spironolactone 25 mg tablet 25 mg PO DAILY Qty: 90 2RF metoprolol tartrate 25 mg tablet 25 mg PO DAILY Qty: 90 2RF acetaminophen 500 mg Tablet 500 mg PO Q6H PRN (Reason: Pain) levocetirizine [Xyzal] 5 mg Tablet 5 mg PO BID trazodone 50 mg tablet 50 mg PO BEDTIME omeprazole 40 mg capsule,delayed release(DR/EC) 40 mg PO DAILY levothyroxine 75 mcg tablet 75 mcg PO DAILY Discharge Orders: Discharge ED (Routine); Ordered 03/10/25 Ordered By: Axel Aponte Referrals: Robert Olivas MD [Primary Care Provider, Family Practice] Discharge Diet: Advance as tolerated and Usual diet Patient Instructions: Opioid Safety, Pain Management, Patient Portal & [place] Instructions Activity Restrictions/Additional Instructions: It has been a pleasure caring for you in the emergency department. Please ensure that you follow-up with your primary care physician for review of all data obtained during this encounter including any incidental findings and laboratory values. Keep in mind that if your condition worsens in any way, I strongly recommend that you return to the emergency department for repeat evaluation immediately. Print Language: Irish Coding Level of Care Code ED Self Defense Instructor for Claudia Borden
[2025-03-10 13:17] VITALS: BP 171/95; PULSE 89; O2SAT 99
[2025-03-10 13:18] LABS: Hematocrit 39.9 % (36-47); Hemoglobin 12.60 g/dL (11.27-16.99); Mean Corpuscular HGB Conc 31.6 g/dL (30-55); Mean Corpuscular Hemoglobin 25.4 pg (27-33); Mean Corpuscular Volume 80.4 fl (85-98); Nucleated Red Blood Cells % 0 %; Platelet Count 261 10^3/cmm (157-399); Red Blood Count 4.96 10^6/uL (3.85-5.65); White Blood Count 7.38 10^3/uL (3.29-11.43)
[2025-03-10 13:30] VITALS: BP 174/90; O2SAT 100
[2025-03-10 13:34] LABS: Alanine Aminotransferase 24 U/L (0-33); Albumin Level 4.6 g/dL (3.5-5.2); Alkaline Phosphatase 83 U/L (35-105); Aspartate Amino Transferase 72 U/L (0-32); Blood Urea Nitrogen 7 mg/dL (6-20); Calcium 9.4 mg/dL (8.5-10.5); Carbon Dioxide 22 mmol/L (22-29); Chloride 93 mmol/L (98-107); Creatinine Clr Calc Pharmacy 89.0380; Globulin 3.6 g/dL (1.3-4.6); Glucose 115 mg/dL (65-115); Osmolality Calculated 279 mOsm/kg (285-295); Sodium 135 mmol/L (136-145); Total Protein 8.2 g/dL (6.6-8.7); Troponin(5th) Baseline 7 ng/L (0-10)
[2025-03-10 13:35] LABS: Anion Gap 23.5 (5-19); Potassium 3.5 mmol/L (3.5-5.1)
[2025-03-10 14:00] VITALS: BP 174/90
[2025-03-10 15:13] VITALS: BP 170/93; PULSE 89; O2SAT 100
== END 2025-03-10 15:14 | disposition home or self-care (01) ==
PROVIDERS: Emergency Provider General Practice; PCP Family Medicine
DX: I10 Essential (primary) hypertension (principal)
CPT/HCPCS: 36415; 70450; 80053; 84484; 85025; 93005; 99284; J9999